=== PATIENT | male | born 1995 | race Asian ===

== ENCOUNTER 2016-10-03 14:11 | Emergency (ER) | payer OTHER ==
[~2016-10-03] VITALS: Ht 175 cm; Wt 64.0 kg
[~2016-10-03 14:11] MED LIST: AMOXICILLIN875 MG PO; PHENERGAN 25 TA25 MG PO; TUSS PO
[2016-10-03 14:15] VITALS: BP 108/61; PULSE 96; TEMP 98.2
== END 2016-10-03 15:39 | disposition home or self-care (01) ==
LOC: COL.ER 14:11
DX: S93.401A Sprain of unspecified ligament of right ankle, initial encounter (principal); X50.1XXA Overexertion from prolonged static or awkward postures, initial encounter

== ENCOUNTER 2017-03-13 19:31 | Emergency (ER) | payer OTHER ==
[~2017-03-13] VITALS: Ht 175 cm; Wt 64.0 kg
[2017-03-13 19:35] VITALS: BP 134/84; PULSE 98; TEMP 98.8
== END 2017-03-13 21:34 | disposition home or self-care (01) ==
LOC: COL.ER 19:31
DX: J06.9 Acute upper respiratory infection, unspecified (principal); G43.909 Migraine, unspecified, not intractable, without status migrainosus; F17.210 Nicotine dependence, cigarettes, uncomplicated

== ENCOUNTER 2017-04-17 00:07 | Emergency (ER) | payer OTHER ==
[~2017-04-17] VITALS: Ht 175 cm; Wt 65.0 kg
[2017-04-17 00:10] VITALS: TEMP 97.7
[2017-04-17 00:42] LABS: PH 6 (5-8); SQUAMOUS EPITHELIAL 0-2 /hpf; URINE APPEARANCE Hazy; URINE BACTERIA None Seen /hpf; URINE BILIRUBIN Negative (NEGATIVE); URINE BLOOD Negative (NEGATIVE); URINE COLOR Yellow; URINE GLUCOSE Negative (NEGATIVE); URINE KETONE Negative (NEGATIVE); URINE RBC None Seen /hpf; URINE UROBILINOGEN Negative (NEGATIVE); URINE WBC 0-2 /hpf
[2017-04-17] MEDS ORDERED: FLEXERIL 1010 MG/TAB PO (00:59)
[2017-04-17 01:17] VITALS: BP 121/70; PULSE 73
== END 2017-04-17 01:17 | disposition home or self-care (01) ==
LOC: COL.ER 00:07
PROVIDERS: Nurse Practitioner
DX: S39.012A Strain of muscle, fascia and tendon of lower back, initial encounter (principal); F17.210 Nicotine dependence, cigarettes, uncomplicated; X50.3XXA Overexertion from repetitive movements, initial encounter
CPT/HCPCS: J1885; J2360

== ENCOUNTER → 2018-05-13 | Outpatient (CLI) | payer OTHER ==
[~2018-05-13] MED LIST changes: +FLEXERIL 1010 MG/TAB PO; +PREDNISONE20 MG PO
== END ==
LOC: COL.RAD 13:29
DX: G43.909 Migraine, unspecified, not intractable, without status migrainosus (principal)
CPT/HCPCS: J1200; Q9967

== ENCOUNTER 2018-07-06 13:53 | Emergency (ER) | payer OTHER ==
[~2018-07-06] VITALS: Ht 167.6 cm; Wt 61.4 kg
[2018-07-06 14:06] VITALS: BP 113/67; PULSE 76; TEMP 98.1
[2018-07-06] MEDS ORDERED: AMOXICILLIN875 MG PO (14:52)
== END 2018-07-06 15:17 | disposition home or self-care (01) ==
LOC: COL.ER 13:53
DX: J02.9 Acute pharyngitis, unspecified (principal)